=== PATIENT | female | born 1960 | race Caucasian/White ===

== ENCOUNTER 2019-01-11 14:53 | Inpatient (IN) ==
[2019-01-11] MEDS ORDERED: PHENERGAN IV PRN (15:11)
[2019-01-11] MEDS ORDERED: PROTONIX IV SCH (15:15)
[2019-01-11] MEDS ORDERED: SODIUM CHLORIDE 0.9% INJ SCH (15:15)
[2019-01-11] MEDS: NS 1,000 ML IV SCH (18:45)
[2019-01-11] MEDS: FLAGYL 500 MG/NS 500 MG/100 ML IVPB IV SCH (18:50)
--- NOTE | 2019-01-11 19:17 | HISTORY AND PHYSICAL ---
CHIEF COMPLAINT: Fever of 102, abdominal pain, dysuria since Monday. HISTORY OF PRESENT ILLNESS: She is a 58-year-old white female who basically came to my office with above symptoms since Monday. Patient was very tender. Fever of 101. Urine dipstick was negative. Admitted to the hospital for further workup, basically to rule out diverticulitis. Patient does not have any signs of peritonitis. PAST MEDICAL HISTORY: 1. History of diverticulosis. 2. Metabolic syndrome. 3. Hiatal hernia. 4. Sleep apnea, AHI 15. 5. PAF. 6. Leiomyoma, benign, pedunculated. PAST SURGICAL HISTORY: 1. Tubal pregnancies. 2. C5-C6 fusion. MEDICINES: 1. Metoprolol. 2. Prilosec. 3. Wellbutrin. ALLERGIES: Demerol. SOCIAL HISTORY: Smoked; stop smoking 4 years ago. Alcohol rarely uses. Living situation in [place]. 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 FAMILY HISTORY: Father of dementia from 76. Mother at 71 from primary progressive aphasia. Sisters had rheumatoid arthritis. HEALTH MAINTENANCE: Mammography 2013. Colonoscopy [address] Erwin. REVIEW OF SYSTEMS: HEENT: No headache, no vision problem, no earache, no sore throat. Neck: No goiter. No lymphadenopathy. No bruit. Cardiopulmonary: No chest pain, shortness of breath, PND, orthopnea. No palpitations. GI: Lower abdominal pain, crampy, dysuria hesitancy. Extremities: No swelling of legs. No joint pain. Neurologic: No focal symptoms or weakness. PHYSICAL EXAMINATION: VITAL SIGNS: Temperature is 100 degrees in my office. Vitals are stable. HEENT: Within normal limits. NECK: Supple. CHEST: Clear to auscultation. HEART: Sounds are regular. ABDOMEN: Belly is soft and tender in the lower abdomen. No signs of peritonitis. EXTREMITIES: No peripheral edema or cyanosis. NEUROLOGIC: No obvious neurological deficits. INVESTIGATIONS: Pending. ASSESSMENT: A 58-year-old white female admitted to the hospital with lower abdominal pain. PLAN: 1. Follow up on the pending labs. 2. CT of the abdomen and pelvis. 3. Intravenous fluids. 4. Intravenous Levaquin and Flagyl. 5. Gastrointestinal prophylaxis with intravenous Protonix. 6. Lovenox for deep venous thrombosis prophylaxis. 7. Reconcile home medications. 8. Based on the CT and the labs, further recommendations will be followed. cc: Yohan Ward MD
[2019-01-11 20:03] LABS: BASO# 0.04 X1000 (0.0-0.2); BASO% 0.4 % (0.0-0.8); EOS# 0.08 X1000 (0.0-0.7); EOS% 0.8 % (0.0-10.0); HEMATOCRIT 36.9 % (37.0-47.0); HEMOGLOBIN 12.4 g/dL (12.0-16.0); IMM GRAN# 0.02 X1000 (0.0-0.04); IMM GRAN% 0.2 % (0.0-0.5); LYMPH# 2.41 X1000 (1.2-3.4); LYMPH% 24.8 % (20.5-51.1); MCH 31.9 PG (27-31); MCHC 33.6 g/dL (33-37); MCV 94.9 FL (81-99); MONO# 0.72 X1000 (0.11-0.59); MONO% 7.4 % (1.7-9.3); MPV 9.7 FL (7.4-10.4); NEUT# 6.43 X1000 (1.4-6.5); NEUT% 66.4 % (42.2-75.2); PLT 218 X1000 (130-400); RBC 3.89 XMIL (4.2-5.4); RDW 12.2 % (11.5-14.5)
[2019-01-11 20:20] LABS: AGAP 11; BUN 10 mg/dL (8-22); CALCIUM 8.7 mg/dL (8.8-10.2); CHLORIDE 105 mmol/L (98-107); COSMO 280; CREATININE 0.6 mg/dL (0.5-0.9); ESTIMATED GFR > 60; GLUCOSE 93 mg/dL (70-104); POTASSIUM 4.1 mmol/L (3.5-5.1); SODIUM 141 mmol/L (136-145); TCO2 25 mmol/L (25-35)
[2019-01-11] MEDS: PEPCID IV SCH (20:24)
[2019-01-11] MEDS: LOVENOX SUBQ SCH (20:24)
[2019-01-11] MEDS: LEVAQUIN 500 MG/D5W 500 MG/100 ML IVPB IV SCH (20:28)
--- NOTE | 2019-01-11 21:37 | Diag Imaging Result Doc PS360 ---
CT ABD/PELVIS W/IV CONT ONLY - 01/11/2019 INDICATION: Abdominal pain COMPARISON: 02/19/2015 FINDINGS: The lung bases are clear and the heart size is normal. The liver, gallbladder, spleen, pancreas, adrenals, and kidneys are normal. There is severe inflammation surrounding the sigmoid colon. There are numerous sigmoid colon diverticula. No free air or free fluid. Normal appendix. Urinary bladder, uterus, and rectum are normal. Bony structures are intact. IMPRESSION: Sigmoid colon diverticulitis. No complication. This exam was performed using automated exposure control, adjustment of mA or kV according to patient size, and/or use of iterative reconstruction technique Electronically signed by Fuad Dos Santos 01/11/2019 9:34 PM
[2019-01-11] MEDS: DILAUDID IV PRN (22:14)
[2019-01-12] MEDS: FLAGYL 500 MG/NS 500 MG/100 ML IVPB IV SCH ×3 (03:10→18:12)
[2019-01-12] MEDS: PEPCID IV SCH ×2 (06:23→18:12)
[2019-01-12 07:09] LABS: BASO# 0.05 X1000 (0.0-0.2); BASO% 0.7 % (0.0-0.8); EOS# 0.08 X1000 (0.0-0.7); EOS% 1.1 % (0.0-10.0); HEMATOCRIT 36.5 % (37.0-47.0); HEMOGLOBIN 12.1 g/dL (12.0-16.0); IMM GRAN# 0.03 X1000 (0.0-0.04); IMM GRAN% 0.4 % (0.0-0.5); LYMPH# 1.71 X1000 (1.2-3.4); MCH 31.3 PG (27-31); MCHC 33.2 g/dL (33-37); MCV 94.3 FL (81-99); MONO# 0.73 X1000 (0.11-0.59); MONO% 9.8 % (1.7-9.3); MPV 9.5 FL (7.4-10.4); NEUT# 4.85 X1000 (1.4-6.5); PLT 194 X1000 (130-400); RBC 3.87 XMIL (4.2-5.4); RDW 12.1 % (11.5-14.5); WBC 7.45 X1000 (4.8-10.8)
[2019-01-12 07:39] LABS: AGAP 13; BUN 8 mg/dL (8-22); CALCIUM 8.4 mg/dL (8.8-10.2); CHLORIDE 106 mmol/L (98-107); COSMO 282; CREATININE 0.6 mg/dL (0.5-0.9); ESTIMATED GFR > 60; GLUCOSE 111 mg/dL (70-104); POTASSIUM 3.8 mmol/L (3.5-5.1); SODIUM 142 mmol/L (136-145); TCO2 23 mmol/L (25-35)
[2019-01-12] MEDS: DILAUDID IV PRN ×3 (07:47→23:05)
--- NOTE | 2019-01-12 12:38 | PROGRESS NOTE ---
DATE: 01/12/2019 SUBJECTIVE: The patient says that she gets abdominal pain. It feels like she is having a baby at times. She is not hurting right this minute. She does have diverticulitis. CT scan showed diverticulitis without complications. OBJECTIVE: Blood pressure is 113/65, respirations 20, pulse 60, temp 98.2 degrees Fahrenheit.HEENT: She is normocephalic. EOMS intact. PERRLA. Throat clear. Lungs: Clear to auscultation and percussion without rhonchi, rales, or wheezes. Heart: Regular rate and rhythm without murmurs, gallops, or friction rubs. Abdomen: Soft. Active bowel sounds. She has some mild tenderness in the lower quadrants bilaterally, but this is not very severe at this particular time. ASSESSMENT: Diverticulitis. PLAN: Continue support and IV antibiotics. cc: MD Yohan Ibanez Jr, MD
[2019-01-12] MEDS: LOVENOX SUBQ SCH (18:12)
[2019-01-12] MEDS: LEVAQUIN 500 MG/D5W 500 MG/100 ML IVPB IV SCH (23:03)
[2019-01-12] MEDS: SODIUM CHLORIDE 0.9% INJ SCH (23:04)
[2019-01-13] MEDS: FLAGYL 500 MG/NS 500 MG/100 ML IVPB IV SCH ×3 (02:27→20:29)
[2019-01-13] MEDS: NS 1,000 ML IV SCH ×3 (02:27→20:29)
[2019-01-13 07:16] LABS: BASO# 0.02 X1000 (0.0-0.2); BASO% 0.3 % (0.0-0.8); EOS# 0.09 X1000 (0.0-0.7); EOS% 1.5 % (0.0-10.0); HEMATOCRIT 35.6 % (37.0-47.0); HEMOGLOBIN 11.7 g/dL (12.0-16.0); IMM GRAN# 0.02 X1000 (0.0-0.04); IMM GRAN% 0.3 % (0.0-0.5); LYMPH# 1.19 X1000 (1.2-3.4); LYMPH% 19.3 % (20.5-51.1); MCH 31.2 PG (27-31); MCHC 32.9 g/dL (33-37); MCV 94.9 FL (81-99); MONO% 9.7 % (1.7-9.3); MPV 9.3 FL (7.4-10.4); NEUT# 4.25 X1000 (1.4-6.5); NEUT% 68.9 % (42.2-75.2); PLT 202 X1000 (130-400); RBC 3.75 XMIL (4.2-5.4); WBC 6.17 X1000 (4.8-10.8)
[2019-01-13 07:31] LABS: AGAP 11; BUN 7 mg/dL (8-22); CALCIUM 8.4 mg/dL (8.8-10.2); CHLORIDE 107 mmol/L (98-107); COSMO 280; CREATININE 0.6 mg/dL (0.5-0.9); ESTIMATED GFR > 60; GLUCOSE 110 mg/dL (70-104); POTASSIUM 3.6 mmol/L (3.5-5.1); SODIUM 141 mmol/L (136-145); TCO2 23 mmol/L (25-35)
[2019-01-13] MEDS: PEPCID IV SCH ×2 (08:08→18:41)
[2019-01-13] MEDS: SODIUM CHLORIDE 0.9% INJ SCH (08:08)
--- NOTE | 2019-01-13 12:03 | PROGRESS NOTE ---
DATE: 01/13/2019 SUBJECTIVE: The patient says she still gets abdominal pain. It feels like she is having a baby. It is all over her abdomen. On examination, she is more tender in the left lower quadrant. OBJECTIVE: Vital Signs: Temperature is 99.2 degrees Fahrenheit, pulse 61, respirations 18, blood pressure 112/64, oxygen saturation is 97% on room air. HEENT: She is normocephalic. EOMs intact. PERRLA. Throat clear. Lungs: Clear to auscultation and percussion without rhonchi, rales, or wheezes. Heart: Regular rate and rhythm without murmurs, gallops, or friction rubs. Abdomen: Soft, with mild tenderness in the lower quadrants but more so on the left lower quadrant. Neurological: Examination intact grossly. White count is 6170, hemoglobin 11.7, hematocrit 35.6. Electrolytes essentially normal. ASSESSMENT: 1. Abdominal pain. 2. Diverticulitis. PLAN: Continue IV antibiotics and pain relief. cc: MD Yohan Ibanez Jr, MD
[2019-01-13] MEDS: LOVENOX SUBQ SCH (18:40)
[2019-01-13] MEDS: LEVAQUIN 500 MG/D5W 500 MG/100 ML IVPB IV SCH (20:29)
[2019-01-14 06:39] LABS: BASO# 0.03 X1000 (0.0-0.2); BASO% 0.5 % (0.0-0.8); EOS# 0.13 X1000 (0.0-0.7); EOS% 2.3 % (0.0-10.0); HEMATOCRIT 39.2 % (37.0-47.0); HEMOGLOBIN 13.2 g/dL (12.0-16.0); LYMPH# 1.68 X1000 (1.2-3.4); LYMPH% 29.4 % (20.5-51.1); MCH 31.3 PG (27-31); MCHC 33.7 g/dL (33-37); MCV 92.9 FL (81-99); MONO% 8.7 % (1.7-9.3); MPV 9.4 FL (7.4-10.4); NEUT# 3.38 X1000 (1.4-6.5); NEUT% 59.1 % (42.2-75.2); PLT 228 X1000 (130-400); RBC 4.22 XMIL (4.2-5.4); RDW 11.9 % (11.5-14.5); WBC 5.72 X1000 (4.8-10.8)
[2019-01-14] MEDS: SODIUM CHLORIDE 0.9% INJ SCH (06:54)
[2019-01-14] MEDS: FLAGYL 500 MG/NS 500 MG/100 ML IVPB IV SCH (06:55)
[2019-01-14] MEDS: PEPCID IV SCH (06:55)
[2019-01-14 07:06] LABS: AGAP 7; BUN 6 mg/dL (8-22); CALCIUM 8.7 mg/dL (8.8-10.2); CHLORIDE 108 mmol/L (98-107); COSMO 281; CREATININE 0.6 mg/dL (0.5-0.9); ESTIMATED GFR > 60; GLUCOSE 107 mg/dL (70-104); POTASSIUM 3.6 mmol/L (3.5-5.1); SODIUM 142 mmol/L (136-145); TCO2 27 mmol/L (25-35)
[2019-01-14 07:21] VITALS: BP 102/59
--- NOTE | 2019-01-15 22:30 | DISCHARGE SUMMARY ---
ADMISSION DATE: 01/11/2019 DISCHARGE DATE: 01/14/2019 DISCHARGING DIAGNOSIS: Abdominal pain due to diverticulitis. SECONDARY DIAGNOSES: 1. Metabolic syndrome. 2. Hiatal hernia. 3. Sleep [id number] index 15. 4. Paroxysmal atrial fibrillation. 5.Leiomyoma. BRIEF HISTORY: Please see the H and P that was done on 01/11/2019. In brief, she is a 58-year- old white female who was admitted directly from my office with lower abdominal pain, fever 101. Urinalysis is negative. The patient is tender in the left lower quadrant, associated with nausea, vomiting. HOSPITAL COURSE: Laboratory data was unremarkable. CT scan showed sigmoid diverticulitis. The patient was given IV Levaquin, Flagyl, IV fluids. The patient got better clinically. Lovenox was given for DVT prophylaxis, IV Pepcid was given for GI prophylaxis. Rest of the hospital course was uneventful. The patient has a prior colonoscopy done in [address] Erwin. LABS: CBC: White cell count 5.7, hematocrit 39.2, platelets 228,000. Sodium 142, potassium 3.6, chloride 108, BUN 6, creatinine 0.6. Glucose 107. Stool cultures, Clostridium difficile toxin was negative. CT scan of the abdomen and pelvis on 01/11/2019, sigmoid colon diverticulitis, and numerous sigmoid diverticula are present. DISCHARGE INSTRUCTIONS: 1. Prilosec 40 daily, Bystolic 5 daily, Flagyl 500 t.i.d. for 7 days, and apparently, this is the 1st attack. 2. The patient was advised to avoid crushed. Patient uses a fiber diet. Avoid nuts. 3. Follow up in my office in 10 days. cc: Yohan Ward MD [facility]
== END 2019-01-14 09:37 | disposition home or self-care (01) | DRG 392 ==
LOC: DIRADM → OBSVTOIN 14:53 → 4N 16:04
PROVIDERS: ADMIT Internal Medicine; ATTEND Internal Medicine
CPT/HCPCS: 74177; 74178; 80048; 85025; 87324; J1170; J1650; J1956; J2550; J7030; Q9967; S0028; S0030